=== PATIENT | male | born 1995 | race Caucasian/White ===

== ENCOUNTER 2022-03-03 00:21 | Emergency (ER) | payer SELFPAY ==
[2022-03-03] MEDS ORDERED: Lidocaine 1% with EPINEPHrine 1:100,000 10 ML MDV INJECT ONE (00:33)
== END 2022-03-03 01:02 | disposition home or self-care (01) ==
LOC: JD.ED 00:21
DX: S01.81XA Laceration without foreign body of other part of head, initial encounter (principal); W19.XXXA Unspecified fall, initial encounter
CPT/HCPCS: 12011; 99282; 99282-25